=== PATIENT | female | born 1985 | race Caucasian/White ===

== ENCOUNTER → 2021-04-08 13:36 | Outpatient (BNVA) | payer OTHER, MEDICAID, SELFPAY | PROVIDERS: PCP Family Medicine; Visit Provider Family Medicine | DX: Z13.6 Encounter for screening for cardiovascular disorders (principal); E66.01 Morbid (severe) obesity due to excess calories; Z68.43 Body mass index [BMI] 50.0-59.9, adult; R60.0 Localized edema | CPT/HCPCS: 80053; 80061; 84443; 85025 ==

== ENCOUNTER → 2021-05-08 14:37 | Outpatient (BNVA) | payer OTHER, MEDICAID, SELFPAY | PROVIDERS: PCP Family Medicine; Visit Provider Family Medicine | DX: R60.0 Localized edema (principal) | CPT/HCPCS: 80048 ==

== ENCOUNTER → 2021-06-24 08:07 | Outpatient (BNVA) | payer MEDICAID, SELFPAY | PROVIDERS: PCP Family Medicine; Visit Provider Nurse Practitioner Family | DX: Z20.822 Contact with and (suspected) exposure to COVID-19 (principal) | CPT/HCPCS: 87426 ==

== ENCOUNTER 2021-06-25 07:20 | Outpatient (CLI) | payer OTHER, MEDICAID, SELFPAY ==
[2021-06-25 07:34] VITALS: BMI 57.5
[2021-06-25 07:53] VITALS: BP 156/90; PULSE 102; RESP 24; TEMP 36.9; O2SAT 97
[2021-06-25 08:18] VITALS: BP 124/79; PULSE 86; RESP 24; TEMP 36.9; O2SAT 94
[2021-06-25 09:05] VITALS: BP 137/85; PULSE 95; RESP 24; TEMP 36.8
== END 2021-06-25 09:07 | disposition home or self-care (01) ==
PROVIDERS: PCP Family Medicine; Visit Provider Nurse Practitioner Family
DX: U07.1 COVID-19 (principal)
CPT/HCPCS: 96365

== ENCOUNTER → 2021-11-06 15:00 | Outpatient (BNVA) | payer OTHER, MEDICAID, SELFPAY | PROVIDERS: PCP Family Medicine; Visit Provider Family Medicine | DX: Z01.419 Encounter for gynecological examination (general) (routine) without abnormal findings (principal); N92.1 Excessive and frequent menstruation with irregular cycle | CPT/HCPCS: 87624 ==

== ENCOUNTER 2021-11-22 12:52 | Emergency (ER) | payer OTHER, MEDICAID, SELFPAY ==
[2021-11-22 13:18] VITALS: BP 174/93; PULSE 77; RESP 20; TEMP 36.7; O2SAT 97; BMI 53.2
[2021-11-22 15:00] VITALS: BP 164/89; PULSE 80; RESP 18; O2SAT 99
[2021-11-22 15:00] LABS: Basophils % 0.4 %; Eosinophils # 0.3 10^3/uL (0.0-0.8); Eosinophils % 3.7 %; Hematocrit 33.8 % (37.0-47.0); Hemoglobin 10.6 g/dL (11.5-15.3); Lymphocytes # 3.6 10^3/uL (0.8-4.8); Lymphocytes % 47.2 %; Mean Corpuscular HGB Conc 31.4 g/dL (30.0-36.0); Mean Corpuscular Hemoglobin 27.2 pg (28.0-34.0); Mean Corpuscular Volume 86.7 fl (81-99); Mean Platelet Volume 9.5 fL (7.4-10.4); Monocytes # 0.4 10^3/uL (0.2-0.9); Monocytes % 5.8 %; Neutrophils # 3.26 10^3/uL (1.8-7.7); Neutrophils % 42.8 %; Nucleated Red Blood Cells % 0 %; Platelet Count 381 10^3/cmm (130-400); Red Cell Distribution Width 13.6 % (12.1-15.1); White Blood Count 7.6 10^3/uL (4.0-10.0)
[2021-11-22 15:15] LABS: HCG, Serum Qual Negative (Negative)
[2021-11-22 16:05] VITALS: BP 160/93; PULSE 73; RESP 16; O2SAT 99
--- NOTE | 2021-11-22 16:12 | ED_ITS ---
HPI - General Adult General: Chief complaint: Vaginal Bleeding Stated complaint: HEAVY BLEEDING Time Seen by Provider: 11/22/21 14:58 History of Present Illness: HPI narrative: Patient is a 36-year-old female with a history of irregular periods, history of prior uterine polyps presenting to the emergency room with heavy vaginal bleeding x6 days.. Since Tuesday, patient has noticed passage of clots with heavy vaginal bleeding. Patient reports going through about 1 pad every 2 hours. She denies any anticoagulation use. Denies any significant pelvic cramps regular contraction. Has no urinary complaints or other GI complaints at this time Onset: 6 days ago Duration:6 days Location:home Severity:moderate Associated symptoms: Deny chest pain, dyspnea, nausea, rash, palpitations or vomiting Review of Systems Const: Denies: fever(s) or chills Eyes: Denies: change in vision ENMT: Denies: mouth pain Card: Denies: chest pain or palpitations Resp: Denies: dyspnea or non-productive cough GI: Denies: abdominal pain, nausea, vomiting or diarrhea : Reports: other (+heavy vaginal bleeding); Denies: dysuria Musc: Denies: extremity pain Skin/Breast: Denies: rash or new lesions Neuro: Denies: weakness in extremities Psych: Reports: other (Normal mood) Raghavendra/Lymph: Denies: easy bruising PFSH ED PFSH: Medical History No pertinent past medical history Surgical History History of cholecystectomy History of tonsillectomy Hx of umbilical hernia repair Social History (Updated 11/22/21 @ 16:17 by Amna Vidal MD) Smoking and tobacco status: former smoker Alcohol intake: never Substance/Drug Use: never Female Reproductive History: Date of last menstrual period: 11/20/21 Physical Exam Const: COMMON NORMALS: alert HENMT: COMMON NORMALS: atraumatic HEAD & SCALP: atraumatic MOUTH: moist mucous membranes not abnormal Eye: COMMON NORMALS: EOMs intact bilaterally and conjunctivae normal CONJUNCTIVA: Yes conjunctivae normal Neck/C-Spine: COMMON NORMALS: full ROM and supple Resp: COMMON NORMALS: normal respiratory effort and clear to auscultation bilaterally AUSCULTATION: clear to auscultation bilaterally Cardio: COMMON NORMALS: regular rate RATE: regular rate GI: COMMON NORMALS: Soft to palpation and non-tender PALPATION: Yes Soft to palpation : OTHER: Exam supervised by patient's RN Davon External genitalia wnl. No erythema around cervical os, os closed, no discharge, +mild bleeding and passage clots without any visible pooling of blood or active extravasation. Extremity: COMMON NORMALS: full ROM Neuro: SENSORIUM/ORIENTATION: Yes alert MOTOR EXAM: No Abnormal motor strength present and Other motor observations present (no focal motor deficits) Psych: COMMON NORMALS: speech normal SPEECH: Yes normal speech MOOD & AFFECT: Yes euthymic mood Course Vital Signs: Vital signs: Vital Signs Temperature 98.1 F 11/22/21 13:18 Pulse Rate 76 11/22/21 17:18 Respiratory Rate 18 11/22/21 17:18 Blood Pressure 127/87 11/22/21 17:18 Pulse Oximetry 97 11/22/21 17:18 MDM - General Adult MDM Narrative: Medical decision making narrative: Patient is a 36-year-old female history of irregular periods presenting to the emergency room with heavy vaginal bleeding x6 days. On exam, patient is hemodynamically stable, does not have pale conjunctive a. Lab work-up showed hemoglobin 10.6. Pelvic exam not show any signs of active bleeding or pooling of blood. Transvaginal ultrasound did not show any focal findings. Present time, patient continues to be hemodynamically stable after observing for 2 hours. Given hemoglobin 10.6 will have discussed with patient the finding and instructed her to follow-up with her primary care provider or [employer] provider for repeat blood work in 48 to 72 hours. I have given patient follow up with our case management coordinator to be seen by Dr. Solo for heavy vaginal bleeding. Patient aware of a call from our case management coordinator to schedule for appointment(s) and verbalizes understanding of the importance of following up. Rx iron for anemia and tylenol PRN pain Disposition: Discharge. Patient counseled regarding diagnostic impression, treatment plan. Patient given ED strict return precautions to return for continuation, worsening, or development of new symptoms. Instructed to f/u w/ PCP regarding symptoms today. Patient verbalized understanding. Lab Data: Labs: Lab Results 11/22/21 11/22/21 14:49 14:49 WBC 7.6 10^3/uL 10^3/ uL (4.0-10.0) RBC 3.90 10^6/uL L 10 ^6/uL (4.1-5.3) Hgb 10.6 g/dL L g/dL (11.5-15.3) Hct 33.8 % L % (37.0-47.0) MCV 86.7 fl fl (81-99) MCH 27.2 pg L pg (28.0-34.0) MCHC 31.4 g/dL g/dL (30.0-36.0) RDW 13.6 % % (12.1-15.1) Plt Count 381 10^3/cmm 10^3 /cmm (130-400) MPV 9.5 fL fL (7.4-10.4) Neut % (Auto) 42.8 % % Lymph % (Auto) 47.2 % % Deuel % (Auto) 5.8 % % Eos % (Auto) 3.7 % % Baso % (Auto) 0.4 % % Neut # (Auto) 3.26 10^3/uL 10^3 /uL (1.8-7.7) Lymph # (Auto) 3.6 10^3/uL 10^3/ uL (0.8-4.8) Deuel # (Auto) 0.4 10^3/uL 10^3/ uL (0.2-0.9) Eos # (Auto) 0.3 10^3/uL 10^3/ uL (0.0-0.8) Baso # (Auto) 0.0 10^3/uL 10^3/ uL (0.0-0.1) Nucleated RBC % (a uto) 0 % % Nucleated RBCs # 0.0 /100WBC /100W BC HCG, Qual Negative (Negative) Imaging Data^: Other Imaging: Radiologist's impression: [address] [id number] ReportSigned Patient: Amina Lawrence #: [id number]: 1985Acct#:[id number]/Sex: 36 / FADM Date: 11/22/21Loc: ERRoom/Bed:Attending Dr: Ordering Provider/Ordering MD: Amna Vidal MD Date of Service: 11/22/21 Procedure(s): US transvaginal 74780 Accession Number(s): [id number] Report Number: [id number] PROCEDURE INFORMATION: Exam: US Pelvis, Transvaginal Exam date and time: 11/22/2021 4:11 PM Age: 36 years old Clinical indication: Other: Heavy vaginal bleeding; Patient HX: History of polyps removed; Additional info: Eval for pathologies TECHNIQUE: Imaging protocol: Real-time transvaginal pelvic ultrasound with image documentation. Transvaginal imaging was used for better evaluation of the endometrium, adnexa, and/or cervix. COMPARISON: No relevant prior studies available. FINDINGS: Uterus: Uterus measures 10.5 x 6.6 x 5.3 cm. Endometrial stripe is inhomogeneous and thickened measuring 18 mm. Possible fluid and/or debris in the endometrial canal. Cervix: There are nabothian cysts in the cervical region. Right ovary/adnexa: Right ovary is not visualized. Left ovary/adnexa: Left ovary measures 3.7 x 3.1 x 2.6 cm. There is a cyst with benign features in the left ovary measuring 3.2 x 2.6 x 2.4 cm. A 6 mm thin-walled cyst is present at the posterior aspect of the larger cyst. It is difficult to evaluate for flow secondary to the cyst. Intraperitoneal space: There is no free fluid in the cul-de-sac. US/US transvaginal [id number] IMPRESSION: Endometrial stripe is inhomogeneous and thickened. Follow-up is recommended in 6 weeks, at a different phase of this patient's menstrual cycle, for further evaluation. Dictated By:Alicia Box MDSigned By:Alicia Box MDSigned Date/Time:11/22/21 1801DD/ 1611 Discharge Plan Discharge Patient Disposition: Home Clinical Impression: Abnormal vaginal bleeding Condition: Stable Prescriptions: New acetaminophen 500 mg tablet 500 mg PO Q6H PRN (Reason: pain) 5 Days Qty: 20 RF: 0 ferrous sulfate 325 mg (65 mg iron) tablet 325 mg PO DAILY 10 Days Qty: 10 RF: 0 No Action fluoxetine [Prozac] 10 mg capsule 10 mg PO DAILY Qty: 30 RF: 0 hydrochlorothiazide 12.5 mg tablet 12.5 mg PO DAILY Qty: 30 RF: 5 Discharge Orders: Discharge ED (Routine); Ordered 11/22/21 Ordered By: Amna Vidal Referrals: Chantel Albright DO [Primary Care Provider] - Discharge Diet: Advance as tolerated Discharge Activity: Resume usual activity Patient Instructions: Abnormal (Dysfunctional) Uterine Bleeding (ED) Activity Restrictions/Additional Instructions: Please come back to the emergency room having new vaginal bleeding, worsening pelvic pain, lightheadedness, shortness of breath, or any new or concerning complaints. Our case management coordinator will have you follow-up with [facility] [employer] provider in the next few days. You would be expected to have a phone call with our case management coordinator who will put you on the schedule. Coding Level of Care Code ED Consulting Senior Practice Director for Sarah [facility]wd Exam Comprehensive
[2021-11-22 17:18] VITALS: BP 127/87; PULSE 76; RESP 18; O2SAT 97
--- NOTE | 2021-11-23 09:28 | DCPLANNER ---
Addendum entered by Faina Coello 12/25/21 13:30: Patient had a followup appointment scheduled for 12.18.21 with [facility] - patient did attend appointment. Addendum entered by Faina Coello 11/27/21 13:49: Patient has a follow up appointment scheduled for Saturday, December 18, 2021 at 1:[address] Solo at [facility], clinic will call patient with appointment information. Original Note: manager international had message to schedule a follow up appointment for patient with [facility]. manager international called the [facility] care clinic, spoke with Presley, gave clinic patients information. manager international was told that patients information would be printed and reviewed. Clinic will call patient with appointment information.
== END 2021-11-22 18:22 | disposition home or self-care (01) ==
PROVIDERS: Nurse Practitioner Family; Emergency Provider Emergency Medicine; PCP Family Medicine
DX: N93.9 Abnormal uterine and vaginal bleeding, unspecified (principal); Z87.891 Personal history of nicotine dependence
CPT/HCPCS: 76830; 84703; 85025; 99283

== ENCOUNTER → 2021-12-18 14:05 | Outpatient (BNVA) | payer OTHER, MEDICAID, SELFPAY | PROVIDERS: PCP Family Medicine; Visit Provider Obstetrics & Gynecology | DX: N93.9 Abnormal uterine and vaginal bleeding, unspecified (principal); N92.0 Excessive and frequent menstruation with regular cycle | CPT/HCPCS: 83001; 84146; 84443; 84702 ==

== ENCOUNTER 2022-01-05 06:49 | Outpatient (CLI) | payer MEDICAID, SELFPAY ==
--- NOTE | 2022-01-05 07:15 | US_ITS ---
WS: [id number] TRANSABDOMINAL PELVIC AND TRANSVAGINAL PELVIC ULTRASOUND HISTORY: N92.0 - Excessive and frequent menstruation with regular ... COMPARISON: 11/22/2021 Uterus: 9.1 cm x 7.1 cm x 4.6 cm. Uterus is very mildly prominent and anteverted. Hypoechoic area in the anterior myometrium measures 3.3 x 1.2 x 2.2 cm. Similar to the prior study. Endometrium: 1.3 cm. Mildly homogeneous endometrium. No mass or polyp identified. No increased vascul arity. Right ovary: 3.6 cm x 2.5 cm x 3.5 cm. Poorly visualized ovary. No abnormality. Left ovary: 3.0 cm x 2.9 cm x 1.6 cm. Poorly visualized ovary. No abnormality identified. Previously described cyst is no longer identified. No free fluid. US/US pelvic with transvaginal IMPRESSION: 1. Small anterior fibroid similar to the prior study. 2. Normal endometrium. 3. Both ovaries are poorly visualized.
== END 2022-01-05 06:50 | disposition home or self-care (01) ==
LOC: RAD 06:51
PROVIDERS: PCP Family Medicine; Visit Provider Obstetrics & Gynecology
DX: N92.0 Excessive and frequent menstruation with regular cycle (principal)
CPT/HCPCS: 76830; 76856

== ENCOUNTER → 2022-02-01 11:12 | Outpatient (BNVA) | payer MEDICAID, SELFPAY | PROVIDERS: PCP Family Medicine; Visit Provider Obstetrics & Gynecology | DX: N92.0 Excessive and frequent menstruation with regular cycle (principal) | CPT/HCPCS: 87635 ==

== ENCOUNTER → 2022-02-22 10:33 | Outpatient (BNVA) | payer OTHER, MEDICAID, SELFPAY | PROVIDERS: PCP Family Medicine; Visit Provider Obstetrics & Gynecology | DX: D25.1 Intramural leiomyoma of uterus (principal); N92.0 Excessive and frequent menstruation with regular cycle; Z01.812 Encounter for preprocedural laboratory examination | CPT/HCPCS: 80053; 81000; 81025; 85025; 86850; 86900; 87635 ==

== ENCOUNTER 2022-02-24 09:21 | Day surgery (SDC) | payer OTHER, MEDICAID, SELFPAY ==
[2022-02-01 14:12] VITALS: BMI 51.6
[2022-02-01 14:17] LABS: OR HCG Qualitative Urine Negative (Negative)
--- NOTE | 2022-02-01 14:37 | P.ANESASSM_ITS ---
Pre-Anesthetic Assessment Height/Weight: Height 1.61 m Weight 134.263 kg Operation Date: 02/03/22 14:15 Proposed Procedures p Hysteroscopy w/ Ablation w/ Novasure 93263/ n92.0/d2501(Not Applicable) - Yasir Solo MD Familial anesthetic complications: None Social No alcohol and No tobacco former smoker, occassional marijuna use Exam alert, oriented x 3, clear to auscultation bilaterally and regular rate & rhythm Airway Mallampati: Class II Dentition: full Pulmonary None reported CV/HEM None reported None reported Hepatic None reported GI None reported Metabolic Morbid Ob[place] [facility] [place] None reported Neuropsych Neuropathy (Sciatica) Anesthetic Plan ASA status: 2 Anesthesia: Choice Risk of > 500 ml blood loss (7ml/kg in children): No Medications/Allergies Home Medications Medication Instructions Recorded Confirmed Last Taken Type hydrochlorothiazide 12.5 mg tablet 12.5 mg PO DAILY #30 tab 11/06/21 02/01/22 Unknown Rx calcium carbonate 500 mg calcium 500 mg PO DAILY 02/01/22 02/01/22 Unknown History (1,250 mg) tablet cholecalciferol (vitamin D3) 100 100 mcg PO DAILY 02/01/22 02/01/22 Unknown History mcg (4,000 unit) capsule zinc 50 mg tablet 50 mg PO DAILY 02/01/22 02/01/22 Unknown History Allergies Allergy/AdvReac Type Severity Reaction Status Date / Time No Known Allergies Allergy Verified 02/01/22 10:40 [facility] Anesthesia Medical History No pertinent past medical history Surgical History History of cholecystectomy History of tonsillectomy Hx of umbilical hernia repair Status post hysteroscopic polypectomy 2017- in [place], states that she had 15 polyps Family History Sister No problems noted. Mother Thyroid condition Family/Other Thyroid condition maternal uncle Denies family history of Colon cancer Ovarian cancer Diabetes Clotting disorder Heart disease Hyperlipidemia Breast cancer Anesthesia complication Bleeding disorder Hypertension Uterine cancer Stroke Social History Smoking and tobacco status: former smoker Alcohol intake: never Female Reproductive History Date of last menstrual period: 11/20/21 Data Anesthesia Cardiac Studies: No Data to Display
[2022-02-01 15:02] LABS: Basophils % 0.6 %; Eosinophils # 0.2 10^3/uL (0.0-0.8); Eosinophils % 2.1 %; Hematocrit 31.4 % (37.0-47.0); Hemoglobin 9.2 g/dL (11.5-15.3); Lymphocytes # 2.6 10^3/uL (0.8-4.8); Lymphocytes % 35.8 %; Mean Corpuscular HGB Conc 29.3 g/dL (30.0-36.0); Mean Corpuscular Hemoglobin 24.1 pg (28.0-34.0); Mean Corpuscular Volume 82.2 fl (81-99); Mean Platelet Volume 9.3 fL (7.4-10.4); Monocytes # 0.5 10^3/uL (0.2-0.9); Monocytes % 6.4 %; Neutrophils # 3.93 10^3/uL (1.8-7.7); Neutrophils % 54.8 %; Nucleated Red Blood Cells % 0 %; Platelet Count 449 10^3/cmm (130-400); Red Blood Count 3.82 10^6/uL (4.1-5.3); Red Cell Distribution Width 14.6 % (12.1-15.1); White Blood Count 7.2 10^3/uL (4.0-10.0)
[2022-02-01 15:41] LABS: Alanine Aminotransferase 26 U/L (0-33); Albumin Level 4.1 g/dL (3.5-5.2); Alkaline Phosphatase 73 IU/L (35-105); Anion Gap 12.7 (5-19); Aspartate Amino Transferase 25 U/L (0-32); Blood Urea Nitrogen 11 mg/dL (6-20); Calcium 9.4 mg/dL (8.5-10.5); Carbon Dioxide 27 mmol/L (22-29); Chloride 100 mmol/L (98-107); Globulin 3.4 g/dL (1.3-4.6); Glomerular Filtration Rate 178.6 mL/min (90-130); Glucose 92 mg/dL (65-115); Osmolality Calculated 281 mOsm/kg (285-295); Potassium 3.7 mmol/L (3.5-5.1); Sodium 136 mmol/L (136-145); Total Bilirubin 0.4 mg/dL (0.15-1.2); Total Protein 7.5 g/dL (6.6-8.7)
[2022-02-01 16:13] LABS: Add Urine Microscopic? YES; Bilirubin Urine Neg (Negative); Blood Urine 3+ (Negative); Glucose Urine UA Norm (Normal); Ketones Urine Negative (Negative); Leukocyte Esterase Urine Negative (Negative); Nitrate Urine Negative (Negative); Protein Urine Trace (Negative); Urine Appearance Clear (CLEAR); Urine Color Yellow (Yellow); Urobilinogen Urine Norm (Negative); pH Urine 5 (5-7)
[2022-02-01 16:16] LABS: Bacteria Urine TRACE /hpf; RBC Urine 0-4 /hpf (0-2); Squamous Epithelial Cell Urine 0-4 /hpf (0-5); WBC Urine 0-4 /hpf (0-5)
[2022-02-24] VITALS (15 sets, daily range): BP systolic 126–158; BP diastolic 67–97; PULSE 67–94; RESP 12–18; TEMP 36.3–36.7; O2SAT 94–99
[2022-02-24 09:49] LABS: OR HCG Qualitative Urine Negative (Negative)
[2022-02-24] MEDS: sodium chloride 0.9% 500 ML IV (10:26)
[2022-02-24] MEDS: scopolamine 1.5 Patch 1 PATCH TRANSDERMA (10:26)
--- NOTE | 2022-02-24 10:30 | P.ANESUD_ITS ---
Pre-Anesthetic Update Pre-Anesthetic Assessment: Date of Surgery/Procedure: 02/24/22 Preop Makayla gnosis: Menorrhagia Proposed Procedure: Operation Date: 02/03/22 17:30 Proposed Procedures p Hysteroscopy w/ Ablation w/ Novasure 01374/ n92.0/d2501(Not Applicable) - Yasir Solo MD Operation Date: 02/24/22 11:00 Proposed Procedures p Hysteroscopy w/ Ablation w/ Novasure 88376/ n92.0/d2501(Not Applicable) - Yasir Solo MD Any changes to Pre-Anesthetic Assessment?: No Last Intake: Intake Last Liquid Date 02/23/22 Last Liquid Time 22:00 Last Solid Date 02/23/22 Last Solid Time 22:00 Vitals: Temperature 97.5 F L 02/24/22 09:44 Temperature Source Temporal Artery S can 02/24/22 09:44 Pulse Rate 77 02/24/22 09:44 Pulse Rhythm 02/24/22 10:10 Pulse Strength 3+ Normal 02/24/22 10:10 Respiratory Rate 16 02/24/22 09:44 Blood Pressure 147/90 02/24/22 09:44 Blood Pressure Viri n 109 02/24/22 09:44 Pulse Oximetry 98 02/24/22 09:44 Oxygen Delivery Me thod 02/24/22 10:10 Exam: Pre-Anes Outpt Exam: alert, oriented x 3, clear to auscultation bilater ally and regular rate & rhythm Cardiac Studies: No Data to Display
[2022-02-24] MEDS: sodium chloride 0.9% 1,000 ML 30 ML IV (11:40)
--- NOTE | 2022-02-24 12:23 | W.PM.OPSUD ---
Surgery/Procedure H&P Update DATE OF PROCEDURE: February 24, 2022 DATE H&P PERFORMED: 02/22/22 H&P UPDATE INFORMATION: I have reviewed H&P completed within last 30 days, I have examined patient prior to procedure and No changes to prior documentation PREOP DIAGNOSIS: Menorrhagia PLANNED PROCEDURE: Operation Date: 02/03/22 17:30 Proposed Procedures p Hysteroscopy w/ Ablation w/ Novasure 33715/ n92.0/d2501(Not Applicable) - Yasir Solo MD Operation Date: 02/24/22 11:00 Proposed Procedures p Hysteroscopy w/ Ablation w/ Novasure 93333/ n92.0/d2501(Not Applicable) - Yasir Solo MD
--- NOTE | 2022-02-24 14:36 | PM.OP ---
Operative Report Date of procedure: February 24, 2022 Pre-op diagnosis: Preop Diagnosis Menorrhagia Procedure done: Hysteroscopic polypectomy via MyoSure. Endometrial ablation via NovaSure Specimens removed/disposition: Endometrial polyps/curettings Surgeon: Yasir Solo MD Estimated blood loss (mL): 25 Findings: Multiple endometrial polyps Procedure: After informed consent, the risks included but were not limited to bleeding, infection, injury to internal organs. The patient was counseled on a possible laparotomy and on the potential need for hysterectomy. The patient expressed understanding of the risks involved, all questions were answered, and the patient consented to the procedure. The patient was taken to the operating room where general anesthesia was administered. She was placed in the dorsal lithotomy position and prepped and draped in sterile fashion. A time out procedure was performed. The patient was examined under anesthesia and found to have a normal uterus with normal adnexa. A sterile weight speculum was placed in the vagina. The uterus was then gently sounded to 8 cm, and the cervix was dilated. The 0 degrees MyoSure hysteroscope was advanced gently to the uterine fundus while visualizing the monitor. Survey of the uterine cavity showed: Multiple polyps, the fundus shows normal proliferative endometrium; left ostium was visualized, and lateral wall with proliferative endometrium; right ostium visualized, and lateral wall with proliferative endometrium; anterior and posterior bundy are with proliferative endometrium; endocervical canal is normal. The MyoSure device was advanced and the direct visualization the the polyps were morcellated without complication. At the end of morcellation the fluid deficit was 500 mL and was estimated at approximately 400 mL were on the floor. There was minimal bleeding noted and the tenaculum removed with goad hemostasis noted. The patient desired an ablation. Risks of the surgery, which include risk of infection, bleeding, urine perforation; were discussed in detail with the patient. Patient was also informed that is not advised after having an ablation procedure done. Patient verbalized understanding of the risks, and informed consent was obtained. The patient was taken to the operating room where general anesthesia was administered. The patient was examined under anesthesia and found to have a normal uterus with normal adnexa. She was placed in the dorsal lithotomy position and prepped and draped in sterile fashion. A weighted speculum was placed in the vagina, and the anterior lip of cervix was grasped with the single toothed tenaculum. The uterus was then gently sounded to 9 cm. The length of the cervical canal was 3 cm and the canal was dilated to 8 mm with Sindhu?s dialators. and the 2.7 cm hysteroscope advanced gently to the uterine fundus while visualizing the monitor. Survey of the uterine cavity showed: fundus normal proliferative endometrium; left and right ostiums visualized, anterior wall with proliferative endometrium; and posterior wall with proliferative endometrium; the endocervical canal is normal. Polyp have been removed with MyoSure. The hysteroscope was removed. A curette was advanced gently to the uterine fundus and rotated to clear the uterus. A sharp curettage wan then performed until a gritty texture was noted. There was minimal bleeding noted. The sterile PT [employer] Inti Selaras? Disposable Device package was opened, connected and tested per instructions. It was found to be working properly. The device?s array is completely enclosed by the external sheath and the WIDTH dial reads approximately 0.5 cm. The appropriate cavity length settings was set 6.5 cm. Adjust and lock the cavity length setting feature on the Disposable Device to the value obtained. The Cervical Collar was fully retracted to its proximal position. Confirmed that the cervix was dilated to 8.0 mm. While maintaining a slight traction on the tenaculum to minimize the angle of the uterus. In-line with the axis of the uterus the Disposable Device was inserted transcervically into the uterine cavity and advance the device until the distal end of the sheath touched the fundus. The handles were slowly squeezed up to the point of increased resistance without locking it. The WIDTH dial read 3 cm. The Disposable Device handles were slowly squeezed together while gently moving the Disposable Device -0.5 cm to and from the fundus and rotating the handle of the Disposable Device 45? counterclockwise from the vertical plane and 45? clockwise from the vertical plane until the handles locked and confirmed the with dial read greater than 2.5 cm. The Disposable Device was gently moved using anterior, posterior and lateral movements. The Disposable Device was slightly pulled back until the WIDTH dial reading reduced by approximately 0.2-0.5 cm. While holding the tenaculum, the Disposable Device was advance to the fundus, maintaining slight forward pressure. The WIDTH dial read to the previous measurement. The Cervical Collar was slide forward until it forms a seal against the external cervical os. The value indicated on the width dial into the PT [employer]? RF Controller. In Automatic Mode the Cavity Integrity Assessment (LILO) procedure by stepping on the foot switch once was began. The cavity integrity assessment LED signaled the test has passed. The ablation cycle started was after the successful completion of the Cavity Integrity Assessment test. Termination of the ablation was automatic at 70 seconds. The Cervical Collar was slide it to its proximal position. The Disposable Device was unlock, holding the front merchandise carrier stationary and pulling the rear handles backwards until the Closed Array indicator reads closed the Disposable Device was withdrawn from the uterine cavity. A hysteroscopy was performed post ablation to confirm therapy it was noted that endometrial cavity had been thoroughly ablated. Prior to this, a sharp curettage was performed, and endometrial curettings were also collected. Patient did have an endometrial biopsy in the office as well, which was negative. The hysteroscope and the tenaculum were removed with goad hemostasis noted. The patient tolerated the procedure well. The patient was taken to the recovery area in stable condition.
[2022-02-24] MEDS: fentaNYL 50 mcg/mL INJ 2mL IVP (14:44)
--- NOTE | 2022-02-24 14:59 | ANE.PACU2 ---
Inpatient post-anesthesia follow up: Airway intact: Yes Vital signs: Temperature 98.0 F Pulse Rate 67 Respiratory Rate 18 Blood Pressure 139/76 Pulse Oximetry 96 Oxygen Delivery Me thod Nasal Cannula Oxygen Flow Rate 2 Fraction of Inspir ed Oxygen Hydration adequate: Yes Nausea and vomiting: No Pain level: 2 Mental status: Baseline
[2022-02-24] MEDS: HYDROcodone-acetaminophen 5-325 mg Tablet 1 TAB PO (15:58)
== END 2022-02-24 16:53 | disposition home or self-care (01) ==
PROVIDERS: PCP Family Medicine; Visit Provider Obstetrics & Gynecology
PROC: 0U598ZZ Destruction of Uterus, Via Natural or Artificial Opening Endoscopic (ICD-10-PCS; CPT 58563; principal; 2022-02-24 10:50)
PROC: 0UDB8ZZ Extraction of Endometrium, Via Natural or Artificial Opening Endoscopic (ICD-10-PCS; CPT 58558; 2022-02-24 10:50)
DX: N92.0 Excessive and frequent menstruation with regular cycle (principal); E66.01 Morbid (severe) obesity due to excess calories; Z68.43 Body mass index [BMI] 50.0-59.9, adult; Z87.891 Personal history of nicotine dependence
CPT/HCPCS: 58563; 36415; 80053; 81001; 81025; 84703; 85025; 86850; 86900; 88305; J0330; J0690; J1100; J1200; J2250; J2405; J2704; J3010; J7030; J7040

== ENCOUNTER → 2022-04-06 10:15 | Outpatient (BNVA) | payer OTHER, MEDICAID, SELFPAY | PROVIDERS: PCP Family Medicine; Visit Provider Obstetrics & Gynecology | DX: Z30.017 Encounter for initial prescription of implantable subdermal contraceptive (principal); Z30.9 Encounter for contraceptive management, unspecified | CPT/HCPCS: 81025 ==

== ENCOUNTER → 2022-08-20 13:53 | Outpatient (BNVA) | payer OTHER, MEDICAID, SELFPAY | PROVIDERS: PCP Family Medicine; Visit Provider Nurse Practitioner Family | DX: M54.9 Dorsalgia, unspecified (principal); S39.012A Strain of muscle, fascia and tendon of lower back, initial encounter | CPT/HCPCS: 81000 ==

== ENCOUNTER → 2022-10-28 14:21 | Outpatient (BNVA) | payer OTHER, MEDICAID, SELFPAY | PROVIDERS: PCP Family Medicine; Visit Provider Family Medicine | DX: D64.9 Anemia, unspecified (principal); M25.562 Pain in left knee | CPT/HCPCS: 85025 ==

== ENCOUNTER 2022-12-01 06:00 | Outpatient (RCR) | payer OTHER, MEDICAID, SELFPAY | END 2022-12-28 23:59 | disposition home or self-care (01) | LOC: SPT 06:00 | PROVIDERS: PCP Family Medicine; Visit Provider Family Medicine | DX: M25.562 Pain in left knee (principal) | CPT/HCPCS: 97110; 97161 ==

== ENCOUNTER 2022-12-29 06:00 | Outpatient (RCR) | payer OTHER, MEDICAID, SELFPAY | END 2023-01-20 23:59 | disposition home or self-care (01) | LOC: SPT 06:00 | PROVIDERS: PCP Family Medicine; Visit Provider Family Medicine | DX: M25.562 Pain in left knee (principal) | CPT/HCPCS: 97110 ==

== ENCOUNTER → 2023-03-21 14:58 | Outpatient (BNVA) | payer OTHER, MEDICAID, SELFPAY | PROVIDERS: PCP Family Medicine; Referring Provider Family Medicine; Visit Provider Specialist | DX: M17.10 Unilateral primary osteoarthritis, unspecified knee (principal); S89.92XA Unspecified injury of left lower leg, initial encounter; X58.XXXA Exposure to other specified factors, initial encounter | CPT/HCPCS: 73560; 73565 ==

== ENCOUNTER 2023-08-05 15:47 | Outpatient (CLI) | payer OTHER, MEDICAID, SELFPAY ==
--- NOTE | 2023-08-05 15:56 | MR_ITS ---
WS: [id number] MRI LEFT KNEE HISTORY: knee injury COMPARISON: Radiographs 03/21/2023 Anterior cruciate ligament: Intact. Posterior cruciate ligament: Intact. Medial collateral ligament: Small amount of fluid surrounding the MCL greatest below the knee joint. Mild sprain. No tear. MCL is being slightly displaced to the joint line by a partially extruded menis cus. Posterior lateral corner structures: Intact. Medial menisci: Partially extruded meniscus. Abnormal posterior horn. Towards the meniscal root there is blunting of the free edge with loss of the normal contour of the meniscus. Abnormal signal predom inantly involves the surfaces of the meniscus. On the coronal plane there is abnormal signal which is predominately along the superior articular surface. Lateral meniscus: Intact. Normal signal, size and shape. Extensor mechanism: Distal quadriceps tendon and patellar tendons are intact. Fluid and soft tissue: Small suprapatellar joint effusion. Small amount of edema surrounding the ante rior knee and along the MCL. No Sánchez's cyst. Osseous and articular structures: Patellofemoral compartment: Very minimal superficial chondromalacia involving the medial patellar fac et. Small amount of subchondral edema in the medial facet. Medial compartment: Mild narrowing of the medial compartment. Mild diffuse chondromalacia. No marrow edema. Lateral compartment: Minimal narrowing and chondromalacia. IMPRESSION: 1. No ACL tear. 2. Abnormal posterior horn medial meniscus. Fraying along both the superior and articular surfaces wi th a small caliber meniscus. Tear extending to the superior tickler surface noted towards the menisca l root. Best seen on the coronal imaging. 3. Mild MCL sprain. 4. Very mild tricompartment narrowing with mild diffuse chondromalacia.
== END 2023-08-05 15:48 | disposition home or self-care (01) ==
PROVIDERS: PCP Family Medicine; Visit Provider Specialist
DX: M17.12 Unilateral primary osteoarthritis, left knee (principal); M25.562 Pain in left knee; S83.242A Other tear of medial meniscus, current injury, left knee, initial encounter; S83.412A Sprain of medial collateral ligament of left knee, initial encounter; M94.262 Chondromalacia, left knee; X58.XXXA Exposure to other specified factors, initial encounter
CPT/HCPCS: 73721

== ENCOUNTER 2023-12-27 18:39 | Emergency (ER) | payer OTHER, MEDICAID, SELFPAY ==
[2023-12-27 18:44] VITALS: BP 169/95; PULSE 74; RESP 16; TEMP 36.8; O2SAT 96; BMI 53.1
[2023-12-27 18:56] LABS: Basophils # 0.1 10^3/uL (0.0-0.1); Basophils % 0.5 %; Eosinophils % 0.4 %; Hematocrit 41.2 % (36-47); Lymphocytes # 2.1 10^3/uL (0.8-4.8); Lymphocytes % 19.6 %; Mean Corpuscular HGB Conc 29.1 g/dL (30-55); Mean Corpuscular Hemoglobin 25.9 pg (27-33); Mean Platelet Volume 9.4 fL (7.4-10.4); Monocytes # 0.6 10^3/uL (0.2-0.9); Monocytes % 5.7 %; Neutrophils # 7.75 10^3/uL (1.8-7.7); Neutrophils % 73.4 %; Nucleated Red Blood Cells % 0 %; Platelet Count 427 10^3/cmm (157-399); Red Blood Count 4.63 10^6/uL (3.85-5.65); Red Cell Distribution Width 14.6 % (12.1-15.1); White Blood Count 10.55 10^3/uL (3.29-11.43)
[2023-12-27 19:07] LABS: HCG, Serum Qual Negative (Negative)
[2023-12-27 19:19] LABS: Alanine Aminotransferase 16 U/L (0-33); Albumin Level 3.8 g/dL (3.5-5.2); Alkaline Phosphatase 79 U/L (35-105); Anion Gap 14.9 (5-19); Aspartate Amino Transferase 17 U/L (0-32); Blood Urea Nitrogen 7 mg/dL (6-20); Calcium 9.1 mg/dL (8.5-10.5); Carbon Dioxide 23 mmol/L (22-29); Chloride 104 mmol/L (98-107); Creatinine Clr Calc Pharmacy 253.4393; Globulin 3.9 g/dL (1.3-4.6); Glomerular Filtration Rate 176.8 mL/min (90-130); Glucose 104 mg/dL (65-115); Lipase 24 U/L (13-60); Osmolality Calculated 284 mOsm/kg (285-295); Potassium 3.9 mmol/L (3.5-5.1); Sodium 138 mmol/L (136-145); Total Bilirubin 0.9 mg/dL (0.15-1.2); Total Protein 7.7 g/dL (6.6-8.7)
--- NOTE | 2023-12-27 19:38 | ED_ITS ---
HPI - Abdominal Pain 2 General: Chief Complaint: Abdominal Pain Stated Complaint: lower abd pain, vaginal Time Seen by Provider: 12/27/23 19:15 History of Present Illness: Patient presents to the ER for complaints of pelvic pain cramping and nausea. Patient says this is her normal time for her period and this. Is just been a lot worse and all of the others. Patient states she had a uterus ablation back in March 2023 and ever since then her periods have been increasing in pain severity. She said this is the worst 1 so far and she decided to come to the ER for further evaluation and treatment. Review of Systems 2 General: Reports: 10 or more systems reviewed and unremarkable except in HPI and below PFSH ED 2 PFSH: Medical History No pertinent past medical history Surgical History Status post hysteroscopic polypectomy 2017- in [place], states that she had 15 polyps Hx of umbilical hernia repair History of tonsillectomy History of cholecystectomy Family History Sister No problems noted. Mother Thyroid disease Family/Other Thyroid disease maternal uncle Denies family history of Colon cancer Ovarian cancer Diabetes Clotting disorder Heart disease Hyperlipidemia Breast cancer Anesthesia complication Bleeding disorder Hypertension Uterine cancer Stroke Social History Smoking and tobacco/nicotine status: former use of tobacco/nicotine Alcohol intake: never Substance/Drug Use: never Physical Exam 2 Const: COMMON NORMALS: no acute distress, average body habitus, patient oriented x3, no limitations, healthy appearing, alert and well nourished HENMT: COMMON NORMALS: normocephalic, atraumatic, hearing grossly normal bilaterally, external ears normal, EAC's normal, Normal external nose present, moist oral mucous membranes and oropharynx normal HEAD & SCALP: normocephalic and atraumatic NOSE: Normal external nose present EXTERNAL EAR: Yes external ears normal EXTERNAL AUDITORY CANAL: EAC's normal Neck/C-Spine: COMMON NORMALS: no JVD Chest: COMMONS NORMALS: normal inspection of the chest and normal palpation of entire chest wall Resp: COMMON NORMALS: normal respiratory effort, No retractions, No use of accessory muscles and clear to auscultation bilaterally AUSCULTATION: clear to auscultation bilaterally Cardio: COMMON NORMALS: no JVD, regular rate, regular rhythm, S1 normal heart sound present, S2 normal heart sound present, No gallops present (Cardio), No clicks present (Cardio), No murmurs present (Cardio) and No rub (Cardio) R ATE: regular rate RHYTHM: regular rhythm HEART SOUNDS: S1 normal heart sound present and S2 normal heart sound present Neuro: COMMON NORMALS: patient oriented x3 SENSORIUM/ORIENTATION: Yes alert Course 2 Vital Signs: Vital signs: Vital Signs Temperature 98.2 F 12/27/23 18:44 Pulse Rate 84 12/27/23 20:00 Respiratory Rate 16 12/27/23 20:00 Blood Pressure 166/95 12/27/23 20:00 Pulse Oximetry 93 12/27/23 20:00 Oxygen Delivery Me thod Room Air 12/27/23 18:44 MDM - Abdominal Pain Medical Decision Making Patient lab work and urinalysis performed. Blood work was essentially benign and urinalysis showed possible urinary tract infection. Patient was given Toradol 60 mg IM and Phenergan 25 mg IM. Patient be treated with antibiotics and referred back to her PCP for/[facility] for further evaluation and treatment of her heavy periods. Differential Diagnosis Likely abdominal pain; Unlikely acute appendicitis, calculus of kidney, constipation, diverticulitis, endometriosis, gastroenteritis, pancreatitis or small bowel obstruction Medical Records I reviewed the patient's medical records. Lab Data I reviewed the patient's lab results. 12/27/23 18:52 12/27/23 18:52 Labs/Radiology: Laboratory Results WBC 10.55 10^3/uL (3.29-11.43) 12/27/23 18:52 RBC 4.63 10^6/uL (3.85-5.65) 12/27/23 18:52 Hgb 12.00 g/dL (11.27-16.99) 12/27/23 18:52 Hct 41.2 % (36-47) 12/27/23 18:52 MCV 89.0 fl (85-98) 12/27/23 18:52 MCH 25.9 pg (27-33) L 12/27/23 18:52 MCHC 29.1 g/dL (30-55) L 12/27/23 18:52 RDW 14.6 % (12.1-15.1) 12/27/23 18:52 Plt Count 427 10^3/cmm (157-399) H 12/27/23 18:52 MPV 9.4 fL (7.4-10.4) 12/27/23 18:52 Neut % (Auto) 73.4 % 12/27/23 18:52 Lymph % (Auto) 19.6 % 12/27/23 18:52 [place] % (Auto) 5.7 % 12/27/23 18:52 Eos % (Auto) 0.4 % 12/27/23 18:52 Baso % (Auto) 0.5 % 12/27/23 18:52 Neut # (Auto) 7.75 10^3/uL (1.8-7.7) H 12/27/23 18:52 Lymph # (Auto) 2.1 10^3/uL (0.8-4.8) 12/27/23 18:52 [place] # (Auto) 0.6 10^3/uL (0.2-0.9) 12/27/23 18:52 Eos # (Auto) 0.0 10^3/uL (0.0-0.8) 12/27/23 18:52 Baso # (Auto) 0.1 10^3/uL (0.0-0.1) 12/27/23 18:52 Nucleated RBC % (auto) 0 % 12/27/23 18:52 Nucleated RBCs # 0.0 /100WBC 12/27/23 18:52 Sodium 138 mmol/L (136-145) 12/27/23 18:52 Potassium 3.9 mmol/L (3.5-5.1) 12/27/23 18:52 Chloride 104 mmol/L (98-107) 12/27/23 18:52 Carbon Dioxide 23 mmol/L (22-29) 12/27/23 18:52 Anion Gap 14.9 (5-19) 12/27/23 18:52 BUN 7 mg/dL (6-20) 12/27/23 18:52 Creatinine 0.4 mg/dL (0.5-0.9) L 12/27/23 18:52 GFR Calculation 176.8 mL/min (90-130) H 12/27/23 18:52 Glucose 104 mg/dL (65-115) 12/27/23 18:52 Calculated Osmolality 284 mOsm/kg (285-295) L 12/27/23 18:52 Calcium 9.1 mg/dL (8.5-10.5) 12/27/23 18:52 Total Bilirubin 0.9 mg/dL (0.15-1.2) 12/27/23 18:52 AST 17 U/L (0-32) 12/27/23 18:52 ALT 16 U/L (0-33) 12/27/23 18:52 Alkaline Phosphatase 79 U/L (35-105) 12/27/23 18:52 Total Protein 7.7 g/dL (6.6-8.7) 12/27/23 18:52 Albumin 3.8 g/dL (3.5-5.2) 12/27/23 18:52 Globulin 3.9 g/dL (1.3-4.6) 12/27/23 18:52 Lipase 24 U/L (13-60) 12/27/23 18:52 HCG, Qual Negative (Negative) 12/27/23 18:52 Urine Color Red (Yellow) A 12/27/23 22:19 Urine Appearance Sl cloudy (CLEAR) A 12/27/23 22:19 Urine pH 5 (5-7) 12/27/23 22:19 Ur Specific [place] 1.030 (1.005-1.030) 12/27/23 22:19 Urine Protein 3+ (Negative) H 12/27/23 22:19 Urine Glucose (UA) Norm (Normal) 12/27/23 22:19 Urine Ketones 1+ (Negative) H 12/27/23 22:19 Urine Blood 3+ (Negative) H 12/27/23 22:19 Urine Nitrate Negative (Negative) 12/27/23 22:19 Urine Bilirubin 1+ (Negative) H 12/27/23 22:19 Urine Urobilinogen Norm mg/dL (Negative) 12/27/23 22:19 Ur Leukocyte Esterase 1+ (Negative) H 12/27/23 22:19 Urine RBC Too numerous to cnt /hpf (0-2) H 12/27/23 22:19 Urine WBC 25-40 /hpf (0-5) H 02/27/24 22:19 Ur Squamous Epith Cells 0-4 /hpf (0-5) H 12/27/23 22:19 Amorphous Sediment Trace /hpf 12/27/23 22:19 Urine Bacteria Trace /hpf (NONE) 12/27/23 22:19 Urine Mucus 2+ /hpf 12/27/23 22:19 All radiology interpretation(s) finalized by discharge Discharge Plan Discharge Patient Disposition: Home Clinical Impression: Painful menstruation Urinary tract infection Qualifiers: Urinary tract infection type: acute cystitis Hematuria presence: with hematuria Qualified Code(s): N30.01 - Acute cystitis with hematuria Condition: Stable Prescriptions: New ciprofloxacin HCl 500 mg tablet 500 mg PO Q12H Qty: 20 0RF No Action diclofenac potassium 50 mg tablet 50 mg PO BID PRN (Reason: pain) Qty: 60 0RF Discharge Orders: Discharge ED (Routine); Ordered 12/27/23 Ordered By: Joshua Craft Referrals: Chantel Albright DO [Primary Care Provider] - 1 week Patient Instructions: Urinary Tract Infection in Women (ED), Abdominal Pain (ED) Activity Restrictions/Additional Instructions: Please take all your medicine as directed. Please follow-up with your family practice physician or [facility] for further evaluation and treatment. Coding Level of Care Code ED [facility] for Sarah Fry
[2023-12-27] MEDS: ketorolac 60 mg/2 mL INJ IM (19:56)
[2023-12-27] MEDS: promethazine 25 mg/mL SDV 1 mL IM (19:56)
[2023-12-27 20:00] VITALS: BP 166/95; PULSE 84; RESP 16; O2SAT 93
[2023-12-27 22:43] LABS: Blood Urine 3+ (Negative); Glucose Urine UA Norm (Normal); Ketones Urine 1+ (Negative); Protein Urine 3+ (Negative); Urine Color Red (Yellow); pH Urine 5 (5-7)
[2023-12-27 22:44] LABS: Add Urine Microscopic? YES; Bilirubin Urine 1+ (Negative); Leukocyte Esterase Urine 1+ (Negative); Nitrate Urine Negative (Negative); Urobilinogen Urine Norm (Negative)
[2023-12-27 22:45] LABS: Add Urine Culture? Yes; Amorphous Sediment Urine TRACE /hpf; Bacteria Urine TRACE /hpf; Mucus Urine 2+ /hpf; RBC Urine TOO NUMEROUS TO CNT /hpf (0-2); Squamous Epithelial Cell Urine 0-4 /hpf (0-5); WBC Urine 25-40 /hpf (0-5)
[2023-12-27] MEDS: ciprofloxacin 500 mg Tablet PO (22:55)
== END 2023-12-27 23:01 | disposition home or self-care (01) ==
PROVIDERS: Emergency Medicine; Emergency Provider Emergency Medicine; PCP Family Medicine
DX: N30.01 Acute cystitis with hematuria (principal); N94.6 Dysmenorrhea, unspecified; Z87.891 Personal history of nicotine dependence
CPT/HCPCS: 36415; 80053; 81001; 83690; 84703; 85025; 87086; 96372; 99284; J1885; J2550

== ENCOUNTER → 2024-02-20 13:23 | Outpatient (BNVA) | payer OTHER, MEDICAID, SELFPAY | PROVIDERS: PCP Family Medicine; Visit Provider Family Medicine | DX: N30.01 Acute cystitis with hematuria (principal) | CPT/HCPCS: 81000 ==